=== PATIENT | female | born 1985 | race Caucasian/White ===

== ENCOUNTER → 2016-05-04 | Outpatient (CLI) | payer BC | END | disposition home or self-care (01) | LOC: LABWHC1 14:22 | PROVIDERS: ATTEND Obstetrics & Gynecology | DX: Z34.90 Encounter for supervision of normal pregnancy, unspecified, unspecified trimester (principal); Z3A.00 Weeks of gestation of pregnancy not specified | CPT/HCPCS: 36415; 84702 ==

== ENCOUNTER → 2016-05-28 | Outpatient (CLI) | payer BC | END | disposition home or self-care (01) | LOC: LABWHC1 16:19 | PROVIDERS: ATTEND Obstetrics & Gynecology | DX: Z34.80 Encounter for supervision of other normal pregnancy, unspecified trimester (principal); Z3A.00 Weeks of gestation of pregnancy not specified | CPT/HCPCS: 36415; 84702 ==

== ENCOUNTER → 2016-05-31 | Outpatient (CLI) | payer BC | END | disposition home or self-care (01) | LOC: LABWHC1 11:46 | PROVIDERS: ATTEND Obstetrics & Gynecology | DX: Z34.80 Encounter for supervision of other normal pregnancy, unspecified trimester (principal); Z3A.00 Weeks of gestation of pregnancy not specified | CPT/HCPCS: 36415; 84702 ==

== ENCOUNTER → 2016-07-09 | Outpatient (CLI) | payer BC ==
--- NOTE | 2016-07-09 15:19 | US ---
EXAMINATION TYPE: US OB <= 14 wk fetus DATE OF EXAM: 07/09/2016 2:47 PM COMPARISON: NONE CLINICAL HISTORY: Confirm Dates Z36,Vitality [id number]. EXAM PERFORMED: Transabdominal (TA) EXAM MEASUREMENTS: GESTATIONAL AGE / DATING Dates by LMP: (9 weeks/3 days) EDC: 02/08/2017 Dates by Current Scan: (9 weeks/4 days) EDC: 02/07/2017 MATERNAL ANATOMY Uterus: 10.5 x 8.0 x 7.0 cm Right Ovary: 3.2 x 2.2 x 2.1 cm Left Ovary: 2.7 x 1.2 x 1.1 cm Post CDS / Adnexa: no free fluid Presence of free fluid: no Presence of corpus luteal cyst: yes- right = 1.7 x 1.4 x 1.7 cm Presence of subchorionic bleed: no GESTATION / SURVEY CRL: 2.8 cm (9 weeks/4 days) MSD: not measured Yolk Sac (normal less than 6mm): 2.8 mm Heart Rate: 171 bpm Rhythm: Normal IUP: Viable IUP Date of LMP: 05/04/2016, Beta HcG (if available): not available TECHNOLOGIST IMPRESSION: Live single IUP measuring 9 weeks 4 days IMPRESSION: VIABLE INTRAUTERINE GESTATION WITH A GESTATIONAL AGE OF 9 WEEKS 4 DAYS +/- 5 DAYS. ESTIMATED DATE OF CONFINEMENT BASED ON THIS EXAMINATION IS 02/07/2017
== END | disposition home or self-care (01) ==
LOC: RADUSWWP 14:19
PROVIDERS: ATTEND Obstetrics & Gynecology
DX: Z36 Encounter for antenatal screening of mother (principal); Z3A.09 9 weeks gestation of pregnancy
CPT/HCPCS: 76801

== ENCOUNTER → 2016-08-04 | Outpatient (CLI) | payer BC ==
[2016-08-04 11:59] LABS: CH 30.9; CHCM 34.1; HCT 37.7 % (34.0-46.0); HDW 2.38; HGB 12.8 gm/dL (11.4-16.0); MCH 30.8 pg (25.0-35.0); MCHC 33.9 g/dL (31.0-37.0); Mean Platelet Volume 8.2; RBC 4.14 m/uL (3.80-5.40); RDW 13.2 % (11.5-15.5); WBC 6.5 k/uL (3.8-10.6)
[2016-08-04 12:09] LABS: Glucose 78 mg/dL (74-99); Non-African American GFR(MDRD) >60 (>60 ml/min/1.73 sqM)
[2016-08-04 12:40] LABS: Hepatitis B Surface Ag Index 0.06
[2016-08-05 06:22] LABS: Toxoplasma Antibody (IgG) <3.0 IU/mL (<7.2)
[2016-08-05 08:20] LABS: HIV-1/HIV-2 Ab Screen NONREAC (NON REAC)
== END | disposition home or self-care (01) ==
LOC: LABWHC1 11:20
PROVIDERS: ATTEND Obstetrics & Gynecology
DX: Z34.81 Encounter for supervision of other normal pregnancy, first trimester (principal); Z3A.00 Weeks of gestation of pregnancy not specified
CPT/HCPCS: 36415; 82565; 82947; 85027; 86762; 86777; 86778; 86780; 86850; 86900; 86901; 87340; 87389

== ENCOUNTER → 2016-10-28 | Outpatient (CLI) | payer BC ==
[2016-10-28 10:58] LABS: CH 31.1; CHCM 34.4; HCT 37.6 % (34.0-46.0); HDW 2.59; MCH 31.4 pg (25.0-35.0); MCHC 34.6 g/dL (31.0-37.0); MCV 90.8 fL (80.0-100.0); RBC 4.14 m/uL (3.80-5.40)
== END | disposition home or self-care (01) ==
LOC: LABWHC1 09:15
PROVIDERS: ATTEND Obstetrics & Gynecology
DX: Z34.82 Encounter for supervision of other normal pregnancy, second trimester (principal)
CPT/HCPCS: 36415; 82950; 85027

== ENCOUNTER 2017-02-01 05:47 | Inpatient (IN) | payer BC ==
--- NOTE | 2017-01-31 17:48 | P.HPOB ---
History of Present Illness H&P Date: 01/31/17 Chief Complaint: Repeat section This patient is a pleasant 31-year-old 2 para 1 female estimated date of confinement 02/08/2017 estimated gestational age 39-0/7 weeks who presents to labor and delivery for a repeat section. Patient's history is such that she had a primary in [place] for failure to progress and failed induction of labor. Patient got to 6 cm dilated that time and she did have a complication apparently at the time of surgery and had to be reopened for bleeding. Patient has requested repeat section at this time. care has been uncomplicated with the exception of a luteal phase defect for which she was on Prometrium. Review of Systems Constitutional: Denies chills, Denies fever Ears, nose, mouth and throat: Denies headache, Denies sore throat Cardiovascular: Denies chest pain, Denies shortness of breath Respiratory: Denies cough Gastrointestinal: Reports heartburn Genitourinary: Reports Menstruation: Reports amenorrhea Past Medical History Past Medical History: No Reported History History of Any Multi-Drug Resistant Organisms: None Reported Past Surgical History: Section Additional Past Surgical History / Comment(s): Patient had postoperative bleeding requiring repeat exploration. Appeared to be from a rectus muscle. Past Anesthesia/Blood Transfusion Reactions: Postoperative Nausea & Vomiting ( PONV) Additional Past Anesthesia/Blood Transfusion Reaction / Comment(s): FELT "VERY DRUGGED", HAD EMERGENCY CSEC, AFTER HAVING EPIDURAL FOR VAGINAL DELIVERY Past Psychological History: No Psychological Hx Reported Smoking Status: Never smoker Past Alcohol Use History: None Reported Past Drug Use History: None Reported Medications and Allergies Home Medications Medication Instructions Recorded Confirmed Type Pnv,Calcium 72/Iron/Folic Acid 1 tab PO DAILY 01/28/17 01/28/17 History [ Plus Tablet] Allergies Allergy/AdvReac Type Severity Reaction Status Date / Time No Known Allergies Allergy Verified 01/28/17 13:50 Exam - OBG Physical Exam Abdomen: bowel sounds normal, no diffuse tenderness, no bruit present, no guarding noted, no hepatomegaly, no splenomegaly, no mass Vulva: both: normal Vagina: normal moisture, no discharge Cervix: no lesion (Cervix in the office was closed and thick.), no discharge Uterus: enlarged (Fundal height at her last visit was 38 cm) Results blood work shows she is a positive, rubella immune, RPR nonreactive, HIV nonreactive, hepatitis B negative, ultrasounds have been normal, was normal , group B strep was positive. Assessment and Plan (1) Third trimester Narrative/Plan: This is a pleasant 31-year-old 2 para 1 female 39 weeks gestation who presents to labor and delivery for elective repeat section. Plan is repeat low transverse section. Patient I discussed the surgery and risks including risks of infection, bleeding, possible injury to bowel, bladder , vessels, and/or other organs. Patient also understands risk of DVT and pulmonary embolism. All the patient's questions are answered written consent is obtained. Status: Acute (2) Previous delivery affecting Status: Acute
[2017-02-01] MEDS ORDERED: LACTATED RINGERS 1,000 ML IV SCH (05:50)
[2017-02-01] MEDS ORDERED: LACTATED RINGERS 1,000 ML IV ONE (05:50)
[2017-02-01] MEDS ORDERED: CITRIC ACID-SODIUM CITRATE 15 ML CUP PO ONE (05:50)
[2017-02-01 06:08] VITALS: BMI 24.5
[2017-02-01 06:45] LABS: Basophils % (A) 0 %; CH 31.7; CHCM 34.3; Eosinophils # (A) 0.1 k/uL (0-0.7); Eosinophils % (A) 1 %; HCT 39.7 % (34.0-46.0); HGB 13.5 gm/dL (11.4-16.0); Luc # (Auto) 0.17; Luc % (Auto) 2; Lymphocytes # (A) 1.6 k/uL (1.0-4.8); Lymphocytes % (A) 18 %; MCH 31.7 pg (25.0-35.0); MCHC 34.1 g/dL (31.0-37.0); MCV 92.9 fL (80.0-100.0); Mean Platelet Volume 8.9; Monocytes # (A) 0.5 k/uL (0-1.0); Monocytes % (A) 6 %; Neutrophils # (A) 6.4 k/uL (1.3-7.7); Neutrophils % (A) 73 %; RBC 4.27 m/uL (3.80-5.40); RDW 12.6 % (11.5-15.5); WBC 8.8 k/uL (3.8-10.6); WBC (Perox) 9.95
[2017-02-01] MEDS ORDERED: ceFAZolin 2 GM in SODIUM CHLORIDE 0.9% 100 ML IVPB ONE (07:15)
[2017-02-01] MEDS ORDERED: OXYTOCIN 10 UNIT/ML 1 ML VIAL ONE (07:50)
[2017-02-01] MEDS ORDERED: KETOROLAC 30 MG/ML 1 ML VIAL ONE (07:50)
[2017-02-01] MEDS ORDERED: NALBUPHINE 10 MG/ML AMPUL ONE (07:50)
[2017-02-01] MEDS ORDERED: ONDANSETRON 4 MG/2 ML VIAL ONE (07:50)
--- NOTE | 2017-02-01 08:37 | P.OP ---
Date of Procedure: 02/01/17 Preoperative Diagnosis: #1: 39-0/7 week . #2: Previous section desires repeat Postoperative Diagnosis: Same Procedure(s) Performed: repeat low transverse section Anesthesia: spinal Surgeon: Jose Lizarraga Cloth Framer #1: Annamarie Aguiar Estimated Blood Loss (ml): 800 Pathology: other (Placenta) Condition: stable Disposition: floor Indications for Procedure: Please see dictated H&P for intimate details of this patient's admission. Brief summary this is a pleasant 31-year-old 2 para 1 female 39-0/7 weeks gestation who is admitted to labor and delivery for elective repeat section. Patient does understand the surgery and risks including risks of infection, bleeding, possible injury to bowel, bladder, vessels, and/ or other organs. She also understands the risk of DVT and pulmonary embolism. All the patient's questions are answered and a written consent is obtained. Operative Findings: This was a vigorous viable female Apgars were 8 and 9 delivery time is 0807 hrs. Description of Procedure: This patient has a Sofia catheter placed to straight drain. She is subsequently taken to the operating room where she is sat up and spinal anesthetic is administered without incident. With an adequate level of anesthesia she has an abdominal prep and drape. Scalpels taken the previous Pfannenstiel incision is excised. A second scalpel is taken down to the fascia and the fascia scored with the scalpel. The fascial incision extended bilaterally using the Fish scissors. Fascia is then dissected off the rectus muscles sharply. Rectus muscles are and the peritoneum was identified and entered sharply. Peritoneal incision extended superior and inferior without difficulty. Bladder blade is then placed. Bladder peritoneum was taken off the lower uterine segment sharply. A scalpel is then taken and a low transverse uterine incision is made. Using a hemostat I enter the uterine cavity bluntly and there is loss of clear fluid. Uterine incision is extended bluntly. The infant's head is then guided through the incision with fundal pressure with delivery of the infant's head. Bulb suction is used for. There is a nuchal cord 1 which is loose and then reduced. We then have deliver the anterior posterior shoulder and rest this infant's body. This is a vigorous viable female infant Apgars are 8 and 9 delivery time was 0807 hrs. has spontaneous respirations and good cry and grossly appears normal. After delivery of the the umbilical cord is doubly clamped and cut appears to be trivascular. The placenta is then manually extracted intact. Uterus is then externalized and uterine incision demarcated with Hill clamps. Uterus explored and all tissue is been removed. Uterine incision then closed using 0 Vicryl running locked fashion 2 layers. Excellent hemostasis is noted. The bladder peritoneum was then closed using a 3-0 Vicryl. Uterus placed back into the abdomen excess fluid is removed from the abdomen and pelvis. The parietal peritoneum was then identified and closed using 0 Vicryl running fashion. The rectus muscles reapproximated in 0 Vicryl interrupted fashion. The fascia is closed using 0 PDS in a running fashion. Fascial incision is found to be intact and hemostatic. Subcutaneous tissues and closed using a 3-0 Vicryl. Skin is and closed using kathleen. Excellent reapproximation is noted. Sterile dressing is then applied. Patient is then taken to her birthing suite in satisfactory condition. All counts are correct 3. There are no complications.
[2017-02-01] MEDS ORDERED: ACETAMINOPHEN TAB 325 MG TAB PO PRN (08:38)
[2017-02-01] MEDS ORDERED: ZOLPIDEM 5 MG TAB PO PRN (08:38)
[2017-02-01] MEDS ORDERED: METOCLOPRAMIDE 5 MG/ML 2 ML VIAL IVP PRN (08:38)
[2017-02-01] MEDS ORDERED: ONDANSETRON 4 MG/2 ML VIAL IVP PRN (08:38)
[2017-02-01] MEDS ORDERED: diphenhydrAMINE 25 MG CAP PO PRN (08:38)
[2017-02-01] MEDS ORDERED: diphenhydrAMINE 50 MG/ML 1 ML VIAL IVP PRN (08:38)
[2017-02-01] MEDS ORDERED: KETOROLAC 30 MG/ML 1 ML VIAL IVP PRN (08:38)
[2017-02-01] MEDS ORDERED: SIMETHICONE 80 MG CHEWABLE PO PRN (08:38)
[2017-02-01] MEDS ORDERED: NALOXONE 0.4 MG/ML 1 ML VIAL IV PRN (08:38)
[2017-02-01] MEDS ORDERED: Acetaminophen-Codeine 300-30mg TAB PO PRN (08:38)
[2017-02-01] MEDS ORDERED: OXYTOCIN 20 UNITS/1000 ML NS 1,000 ML IV SCH (08:38)
[2017-02-01] MEDS: SENNOSIDES-DOCUSATE SODIUM 1 EACH TAB PO SCH ×2 (09:03→20:53)
[2017-02-01] MEDS: LACTATED RINGERS 1,000 ML IV SCH (22:19)
[2017-02-01] MEDS: Acetaminophen-Codeine 300-30mg TAB PO PRN (23:35)
[2017-02-02] MEDS: LACTATED RINGERS 1,000 ML IV SCH (00:40)
[2017-02-02] MEDS: IBUPROFEN 600 MG TAB PO PRN ×3 (04:01→19:07)
--- NOTE | 2017-02-02 06:59 | P.PNOBGPC ---
Subjective - Subjective Patient reports: Reports appetite normal, Reports voiding normally, Reports pain well controlled, Reports ambulating normally : doing well Objective - Vital Signs Latest vital signs: Vital Signs Temp Pulse Resp BP Pulse Ox 02/02/17 04:00 98 F 76 16 104/63 97 02/01/17 23:53 98.5 F 73 16 110/67 100 02/01/17 20:00 98.3 F 73 16 113/70 99 02/01/17 15:00 98.5 F 83 16 117/86 100 02/01/17 10:34 83 16 134/65 02/01/17 10:05 83 16 141/72 02/01/17 09:34 76 16 139/68 99 02/01/17 09:20 76 16 131/64 99 02/01/17 09:06 81 18 132/71 98 02/01/17 08:49 83 18 137/66 98 02/01/17 08:34 97.7 F 75 18 128/59 100 Intake and Output 02/01/17 02/01/17 02/02/17 14:59 22:59 06:59 Output Total 800 1700 650 Balance -800 -1700 -650 Output: Urine 1700 650 Uretheral (Sofia) 1400 Estimated Blood Loss 800 Other: # Voids 1 1 - Exam Lungs: bilateral: normal Chest: Normal S1, Normal S2 Extremities: Present: normal Abdomen: Present: normal appearance, soft. Absent: distention, tenderness Incision: Present: normal, dry, intact Uterus: Present: normal, firm Assessment and Plan (1) Third trimester Narrative/Plan: Post operative day #1. Patient is resting without complaints. Vital signs are stable and she is afebrile. Her incision is intact and dry. CBC is pending at this time. My impression this is a normal course. Plan is to encouraged patient ambulate, allow her to shower, check a CBC. Continue routine postoperative care. Current Visit: Yes Status: Acute Code(s): Z34.93 - ENCNTR FOR SUPRVSN OF NORMAL PREG, UNSP, THIRD TRIMESTER SNOMED Code(s): 08717830 (2) Previous delivery affecting Current Visit: Yes Status: Acute Code(s): O34.219 - MATERNAL CARE FOR UNSP TYPE SCAR FROM PREVIOUS DEL SNOMED Code(s): 313328617
[2017-02-02] MEDS: SENNOSIDES-DOCUSATE SODIUM 1 EACH TAB PO SCH ×2 (07:22→19:51)
[2017-02-02] MEDS: Acetaminophen-Codeine 300-30mg TAB PO PRN ×3 (07:23→19:50)
[2017-02-02 08:51] LABS: Basophils % (A) 0 %; CH 31.8; CHCM 33.9; Eosinophils # (A) 0.1 k/uL (0-0.7); Eosinophils % (A) 1 %; HCT 40.4 % (34.0-46.0); HDW 2.63; HGB 13.6 gm/dL (11.4-16.0); Luc # (Auto) 0.18; Luc % (Auto) 2; Lymphocytes # (A) 1.2 k/uL (1.0-4.8); Lymphocytes % (A) 12 %; MCH 31.8 pg (25.0-35.0); MCHC 33.8 g/dL (31.0-37.0); MCV 94.1 fL (80.0-100.0); Mean Platelet Volume 8.5; Monocytes # (A) 0.6 k/uL (0-1.0); Monocytes % (A) 6 %; Neutrophils % (A) 79 %; RBC 4.29 m/uL (3.80-5.40); RDW 12.5 % (11.5-15.5); WBC 10.2 k/uL (3.8-10.6); WBC (Perox) 11.23
--- NOTE | 2017-02-02 11:11 | P.PN ---
Progress Note - Text Progress Note Date: 02/02/17 0645 Anesthesia POD 1. Patient is status post section under spinal anesthesia with intra-thecal preservative free morphine 300 g. Minimal pruritus, good post-op analgesia, and no headache or other complications.
[2017-02-03] MEDS: IBUPROFEN 600 MG TAB PO PRN ×5 (00:33→23:52)
[2017-02-03] MEDS: Acetaminophen-Codeine 300-30mg TAB PO PRN ×3 (02:03→20:32)
[2017-02-03] MEDS: SENNOSIDES-DOCUSATE SODIUM 1 EACH TAB PO SCH ×2 (08:10→20:32)
--- NOTE | 2017-02-03 08:25 | P.PNOBGPC ---
Subjective - Subjective Patient reports: Reports appetite normal, Reports voiding normally, Reports pain well controlled, Reports ambulating normally : doing well Objective - Vital Signs Latest vital signs: Vital Signs Temp Pulse Resp BP Pulse Ox 02/03/17 00:00 98.3 F 86 14 145/72 02/02/17 15:27 97.8 F 89 16 98/70 98 - Exam Lungs: bilateral: normal Chest: Normal S1, Normal S2 Extremities: Present: normal Abdomen: Present: normal appearance, soft. Absent: distention, tenderness Incision: Present: normal, dry, intact Uterus: Present: normal, firm - Labs Labs: Abnormal Lab Results - Last 24 Hours (Table) 02/02/17 Range/Units 08:21 Neutrophils # 8.0 H (1.3-7.7) k/uL Assessment and Plan (1) Third trimester Narrative/Plan: Post operative day #2. Patient is resting without complaints. She is ambulating and urinating without difficulty and tolerating regular diet. Plan today is to continue routine postoperative care most likely discharge home tomorrow. Current Visit: Yes Status: Acute Code(s): Z34.93 - ENCNTR FOR SUPRVSN OF NORMAL PREG, UNSP, THIRD TRIMESTER SNOMED Code(s): 13185795 (2) Previous delivery affecting Current Visit: Yes Status: Acute Code(s): O34.219 - MATERNAL CARE FOR UNSP TYPE SCAR FROM PREVIOUS DEL SNOMED Code(s): 603274496
[2017-02-03 08:26] VITALS: RESP 16
[2017-02-04] MEDS: Acetaminophen-Codeine 300-30mg TAB PO PRN ×2 (03:04→09:18)
[2017-02-04] MEDS: IBUPROFEN 600 MG TAB PO PRN ×2 (05:51→12:44)
--- NOTE | 2017-02-04 06:53 | P.PNOBGPC ---
Subjective - Subjective Patient reports: Reports appetite normal, Reports voiding normally, Reports pain well controlled, Reports ambulating normally : doing well Objective - Vital Signs Latest vital signs: Vital Signs Temp Pulse Resp BP Pulse Ox 02/04/17 00:00 98.2 F 75 16 113/70 02/03/17 15:16 97.8 F 79 16 134/77 98 02/03/17 08:00 98.3 F 75 16 114/67 94 L Intake and Output 02/03/17 02/03/17 02/04/17 14:59 22:59 06:59 Intake Total 1200 Balance 1200 Intake: Oral 1200 Other: # Voids 1 1 2 - Exam Lungs: bilateral: normal Chest: Normal S1, Normal S2 Extremities: Present: normal Abdomen: Present: normal appearance, soft. Absent: distention, tenderness Incision: Present: normal, dry, intact Uterus: Present: normal, firm Assessment and Plan (1) Third trimester Narrative/Plan: Postoperative day #3. Patient is resting without complaints. Vital signs are stable she is afebrile. Uterus is firm nontender and her incision is intact and dry. My impression is this is a normal postoperative course. Plan is to continue routine postoperative care discharge home later today. Current Visit: Yes Status: Acute Code(s): Z34.93 - ENCNTR FOR SUPRVSN OF NORMAL PREG, UNSP, THIRD TRIMESTER SNOMED Code(s): 03127223 (2) Previous delivery affecting Current Visit: Yes Status: Acute Code(s): O34.219 - MATERNAL CARE FOR UNSP TYPE SCAR FROM PREVIOUS DEL SNOMED Code(s): 785296964
--- NOTE | 2017-02-04 06:54 | P.DS ---
Providers Date of admission: 02/01/17 05:47 Expected date of discharge: 02/04/17 Attending physician: Jose Lizarraga Primary care physician: Stated None - Discharge Diagnosis(es) (1) Third trimester Current Visit: Yes Status: Acute (2) Previous delivery affecting Current Visit: Yes Status: Acute Hospital Course: Please see dictated H&P for intimate details of this patient's admission. Brief summary is a pleasant 31-year-old 2 para 1 female 39-0/7 weeks gestation admitted to labor and delivery for repeat section. Patient is admitted has uncomplicated repeat section for viable female infant. Please see dictated operative note. By postoperative day #3 patient was felt to be stable for discharge home follow up with me in 7 days. Procedures: Repeat low transverse section Patient Condition at Discharge: Good Plan - Discharge Summary New Discharge Prescriptions: New Acetaminophen-Codeine 300-30mg [Tylenol w/codeine #3] 1 - 2 each PO Q4HR PRN #30 tab PRN Reason: Mild Pain Ibuprofen [Motrin] 600 mg PO Q6HR PRN #40 tab PRN Reason: Mild Pain Or Fever >= 100.5 No Action Pnv,Calcium 72/Iron/Folic Acid [ Plus Tablet] 1 tab PO DAILY Discharge Medication List Pnv,Calcium 72/Iron/Folic Acid [ Plus Tablet] 1 tab PO DAILY 01/28/17 [ History] Acetaminophen-Codeine 300-30mg [Tylenol w/codeine #3] 1 - 2 each PO Q4HR PRN # 30 tab 02/03/17 [Rx] Ibuprofen [Motrin] 600 mg PO Q6HR PRN #40 tab 02/03/17 [Rx] Follow up Appointment(s)/Referral(s): Jose Lizarraga MD [STAFF PHYSICIAN] - 1 Week Patient Instructions/Handouts: (DC) Activity/Diet/Wound Care/Special Instructions: No strenuous activity or lifting for 6 weeks. No intercourse or anything per vagina for 6 weeks. Please call if any fever, chills, excessive vaginal bleeding, and/or abdominal pain. Discharge Disposition: HOME SELF-CARE
[2017-02-04 08:04] VITALS: BP 129/77; PULSE 80; TEMP 98.4
[2017-02-04] MEDS: SENNOSIDES-DOCUSATE SODIUM 1 EACH TAB PO SCH (09:18)
== END 2017-02-04 13:30 | disposition home or self-care (01) | DRG 766 ==
LOC: 4FBP 05:47
PROVIDERS: ADMIT Obstetrics & Gynecology; ATTEND Obstetrics & Gynecology
PROC: 10D00Z1 Extraction of Products of Conception, Low, Open Approach (ICD-10-PCS; principal; 2017-02-01 08:00)
DX: O34.211 Maternal care for low transverse scar from previous cesarean delivery (principal); O69.81X0 Labor and delivery complicated by cord around neck, without compression, not applicable or unspecified; Z37.0 Single live birth; Z3A.39 39 weeks gestation of pregnancy
CPT/HCPCS: 85025; 86850; 86900; 86901; 88302; 88307

== ENCOUNTER → 2018-06-14 | Outpatient (CLI) | payer BC | LOC: NEUROMAIN 12:54 | PROVIDERS: ATTEND Otolaryngology | DX: Z53.9 Procedure and treatment not carried out, unspecified reason (principal) ==

== ENCOUNTER 2019-02-11 21:59 | Outpatient (CLI) | payer BC ==
[2019-02-11 23:02] VITALS: BP 141/75; PULSE 115; RESP 16; TEMP 98.8
--- NOTE | 2019-03-13 08:20 | P.MSEPDOC ---
Presenting Problems - Arrival Data Date of Arrival on Unit: 02/11/19 Time of Arrival on Unit: 21:59 Mode of Transport: Ambulatory - Complaint OB-Reason for Admission/Chief Complaint: Rule Out SROM Comment: Clear fluid around 2130, pt states contractions every 3 minutes for the past 2 hours. Medical History - Information : 4 Para: 2 Term: 2 : 0 Abortions: Spontaneous or Elective: 1 Number of Living Children: 2 - Gestational Age Gestational Age by CLIFFORD (wks/days): 36 Weeks and 3 Days Review of Systems - Review of Systems Constitutional: No problems Breast: No problems ENT: No problems Cardiovascular: No problems Respiratory: No problems Gastrointestinal: No problems Genitourinary: No problems Musculoskeletal: No problems Neurological: No problems Skin: No problems Vital Signs - Temperature Temperature: 98.8 F Temperature Source: Oral - Pulse Right Brachial Pulse Rate: 115 Pulse Assessment Method: Automatic Cuff - Respirations Respiratory Rate: 16 Oxygen Delivery Method: Room Air O2 Sat by Pulse Oximetry: 97 - Blood Pressure Right Arm Blood Pressure: 141/75 Blood Pressure Mean: 97 Blood Pressure Source: Automatic Cuff Medical Screen Scoring (Pre) - Cervical Exam Dilation: Exam Deferred Effacement: Exam Deferred Membranes: Intact - Uterine Contractions Frequency: > or = 36 weeks =2 Duration: > 40 seconds = 2 Intensity: N/A - Maternal Vital Signs Maternal Temperature: N/A Maternal Blood Pressure: N/A Signs of Preeclampsia: N/A Maternal Respirations: N/A - Maternal Trauma Maternal Trauma: N/A - Assessment - Baby A Baseline FHR: 135 Heart Rate - NICHD Category: Category I (Normal) = 0 NST: Reactive - Total Score - Baby A Total Score - Baby A: 4 - Total Score - Baby B Total Score - Baby B: 4 - Total Score - Baby C Total Score - Baby C: 4 - Level of Risk - Baby A Level of Risk - Baby A: Low (0-5) - Level of Risk - Baby B Level of Risk - Baby B: Low (0-5) - Level of Risk - Baby C Level of Risk - Baby C: Low (0-5) - Pain Assessment Pain Location and Character: Back, Abdomen Pain Scale Used: Numeric (1 - 10) Pain Intensity: 5 Pain Management Goal: 4 Pain Description: *Acute, Cramping Pain Radiation Location: no Pain Frequency: Intermittent Pain Duration: 2 Pain Duration Units: Hours Pain Behavior: Vocalization Pain Aggravating Factors: Contractions Physician Notification (Pre) - Physician Notified Physician Notified Date: 02/11/19 Physician Notified Time: 22:55 Spoke With: Terrance Prater Order Received: Yes - Notification Comment Comment: Preform vag exam after 1 hour, if no cevical change d/c home. Physician Notification (Post) - Notification Comment Comment: Closed/thick/high, no cervical change Disposition - Disposition OB Disposition: Discharge to home, Written follow up instructions reviewed Discharge Date: 02/11/19 Discharge Time: 23:15 I agree with the RN Medical Screening Exam: Yes Risk & Benefit of care provided described in d/c instruction: Yes Diagnosis: FALSE LABOR BEFORE 37 COMPLETED WEEKS OF GEST, THIRD TRI
== END 2019-02-11 23:15 | disposition home or self-care (01) ==
LOC: FBPOP 21:59
PROVIDERS: ATTEND Obstetrics & Gynecology
DX: O47.03 False labor before 37 completed weeks of gestation, third trimester (principal); Z3A.36 36 weeks gestation of pregnancy
CPT/HCPCS: 59025; 84112; 99213

== ENCOUNTER 2019-03-02 05:15 | Inpatient (IN) | payer BC ==
--- NOTE | 2019-03-01 07:16 | P.HPOB ---
History of Present Illness H&P Date: 03/01/19 Chief Complaint: Repeat section and also tubal ligation. This patient is a pleasant 33-year-old 4 para 2 female estimated date of confinement 03/08/2019 estimated gestational age 39 and one sevenths weeks who presents to labor and delivery for elective repeat sections also requesting permanent sterilization by tubal ligation. Patient's care has been complicated by gestational diabetes for which she has not required any medications. Patient's followed by Dr. Gaming. Patient's had 2 previous section desires repeat also requesting tubal ligation. Review of Systems Genitourinary: Reports Menstruation: Reports amenorrhea Past Medical History Past Medical History: No Reported History Additional Past Medical History / Comment(s): Gestational diabetes 12/28/18. CURRENTLY ON AMOXICILLIN FOR STREP THROAT -DR. DIAL AWARE History of Any Multi-Drug Resistant Organisms: None Reported Past Surgical History: Section Additional Past Surgical History / Comment(s): Patient had postoperative bleeding requiring repeat exploration. Appeared to be from a rectus muscle. FROM 1ST C-SECT, NO PROBLEMS WITH 2ND C SECT Past Anesthesia/Blood Transfusion Reactions: Postoperative Nausea & Vomiting (PONV) Additional Past Anesthesia/Blood Transfusion Reaction / Comment(s): FELT "VERY DRUGGED", HAD EMERGENCY CSEC, AFTER HAVING EPIDURAL FOR VAGINAL DELIVERY Past Psychological History: No Psychological Hx Reported Smoking Status: Never smoker Past Alcohol Use History: None Reported Past Drug Use History: None Reported - Past Family History Mother Family Medical History: No Reported History Medications and Allergies Home Medications Medication Instructions Recorded Confirmed Type Pnv,Calcium 72/Iron/Folic Acid 1 tab PO DAILY 01/28/17 02/28/19 History [ Plus Tablet] Allergies Allergy/AdvReac Type Severity Reaction Status Date / Time No Known Allergies Allergy Verified 02/28/19 10:44 Exam - OBG Physical Exam Abdomen: bowel sounds normal, no diffuse tenderness, no bruit present, no guarding noted, no hepatomegaly, no splenomegaly, no mass Vulva: both: normal Vagina: normal moisture, no discharge Cervix: no lesion (Cervix in the office was previously closed.), no discharge Uterus: enlarged (Fundal height 37 cm) Results blood work shows she is A positive, rubella immune, RPR nonreactive, group B strep was positive, Glucola was abnormal and three-hour GTT was abnormal. Growth ultrasounds have been normal. Assessment and Plan Assessment: This is a pleasant 33-year-old 4 para 2 female 39 and one sevenths weeks gestation with previous section 2 requesting repeat section and also requesting permanent sterilization. Patient also has diet-controlled gestational diabetes. Plan is repeat low transverse section and bilateral partial salpingectomy. Patient understands a tubal ligation is considered permanent, however there is a failure rate of approximately 5 or less per thousand procedures done. She understands that there are alternatives to the surgery. Patient understands surgery itself has risks including risks of infection, bleeding, possible injury to bowel, bladder, vessels, and/or other organs. All the patient's questions have been answered and a written consent is obtained. (1) 39 weeks gestation of Status: Acute Code(s): Z3A.39 - 39 WEEKS GESTATION OF SNOMED Code(s): 39987291 (2) Previous delivery affecting Status: Acute Code(s): O34.219 - MATERNAL CARE FOR UNSP TYPE SCAR FROM PREVIOUS DEL SNOMED Code(s): 722961944 (3) Family planning Status: Acute Code(s): Z30.09 - ENCOUNTER FOR OTH GENERAL CNSL AND ADVICE ON CONTRACEPTION SNOMED Code(s): 197163852 (4) Gestational diabetes Status: Acute Code(s): O24.419 - GESTATIONAL DIABETES MELLITUS IN , UNSP CONTROL SNOMED Code(s): 92380360
[2019-03-02] MEDS ORDERED: LACTATED RINGERS 1,000 ML IV SCH (05:30)
[2019-03-02] MEDS ORDERED: CITRIC ACID-SODIUM CITRATE 15 ML CUP PO ONE (05:30)
[2019-03-02] MEDS ORDERED: LACTATED RINGERS 1,000 ML IV ONE (05:30)
[2019-03-02 05:45] VITALS: BMI 25.2
[2019-03-02 06:22] LABS: Basophils % (A) 0 %; Eosinophils # (A) 0.1 k/uL (0-0.7); Eosinophils % (A) 1 %; HCT 39.2 % (34.0-46.0); Lymphocytes # (A) 1.1 k/uL (1.0-4.8); Lymphocytes % (A) 19 %; MCHC 33.3 g/dL (31.0-37.0); MCV 90.2 fL (80.0-100.0); Monocytes # (A) 0.3 k/uL (0-1.0); Monocytes % (A) 6 %; Neutrophils % (A) 71 %; Platelet Count 174 k/uL (150-450); RBC 4.34 m/uL (3.80-5.40); RDW 12.9 % (11.5-15.5); WBC 5.7 k/uL (3.8-10.6)
[2019-03-02 06:59] LABS: Glucose,Whole Blood 75 mg/dL (75-99)
[2019-03-02] MEDS ORDERED: OXYTOCIN 10 UNIT/ML 1 ML VIAL ONE (07:00)
[2019-03-02] MEDS ORDERED: ONDANSETRON 4 MG/2 ML VIAL ONE (07:00)
[2019-03-02] MEDS ORDERED: ePHEDrine SULFATE/0.9% NACL/PF 50 MG/5 ML SYRINGE IV ONE (07:00)
[2019-03-02] MEDS ORDERED: KETOROLAC 30 MG/ML 1 ML VIAL ONE (07:00)
[2019-03-02] MEDS ORDERED: NALBUPHINE 10 MG/ML (1 ML AMP) ONE (07:00)
[2019-03-02] MEDS ORDERED: MORPHINE SULFATE (PF) 0.3 MG/0.3 ML SYR ONE (07:00)
--- NOTE | 2019-03-02 07:56 | P.OP ---
Date of Procedure: 03/02/19 Preoperative Diagnosis: #1: 39 and one sevenths weeks . #2: Previous section desires repeat. #3: Multi parity desires permanent sterilization. #4: Gestational diabetes, diet controlled Postoperative Diagnosis: Same Procedure(s) Performed: Repeat low transverse section and bilateral partial salpingectomy Anesthesia: spinal Surgeon: Jose Lizarraga Veterinary Technologist #1: Annamarie Aguiar Estimated Blood Loss (ml): 800 Pathology: other (Placenta and bilateral fallopian tube segments) Condition: stable Disposition: floor Indications for Procedure: Please see dictated H&P for intimate details of this patient's admission. Brief summary this is a pleasant 33-year-old 4 para 2 female 39 and one sevenths weeks gestation admitted to labor and delivery for elective repeat section and also requesting permanent sterilization. Patient understands a tubal ligation is considered permanent, however there is a failure rate of less than 5 per thousand procedures done. She also understands if she does become she has a 50% chance of a tubal or an ectopic . Patient understands surgery itself and apparently has risks including risks of infection, bleeding, possible injury to bowel, bladder, vessels, and/or other organs. All the patient's questions are answered written consent is obtained. Operative Findings: This is a vigorous viable female Apgars 9 and 9 delivery time was 0716 hrs. Infant had spontaneous respirations and good cry and grossly appear normal Description of Procedure: This patient has a Sofia catheter placed to straight drain. She is subsequently taken to the operating room where she sat up and spinal anesthetic is administered without incident. With an adequate level of anesthesia she has abdominal prep and drape. Scalpel is taken the previous Pfannenstiel incision is excised. A second scalpel is then used to score the fascia. Fascial incision extended bilaterally using the Fish scissors. Fascia is dissected off the rectus muscles sharply. There is a small defect in the rectus muscle on the lower right side most likely from her first section area the peritoneum was then identified and entered sharply. Peritoneal incision extended superior and inferior without difficulty. Bladder blade is then placed the bladder peritoneum was taken off the lower uterine segment. Scalpels and taken low tr ansverse uterine incision is then made. Using a hemostat I enter the uterine cavity bluntly. There is loss of clear fluid. This is incision is extended bluntly. The infant's head is then guided gently through the incision with fundal pressure. Mouth and nares are bulb suctioned. Is no evidence of a nuchal cord. Then have deliver the anterior shoulder and rest this infant's body. Is a vigorous viable female Apgars 9 and 9 delivery time was 0716 hours. After delivery of the the umbilical cords doubly clamped and cut. Infant is handed off to the nurses in attendance. Placenta is then manually extracted intact. The uterus is then externalized and the uterine incision demarcated with Hill clamps. All tissue is been removed from the uterine cavity. Uterine incision is then closed using 0 Vicryl running locked fashion 2 layers. Excellent hemostasis is noted. Then turned my attention a left fallopian tube approximately 4 cm from the cornual insertion a small window made to the mesial salpinx with Bovie cautery. Using a 2-0 silk I doubly ligate 1-2 cm segment of tube. This is excised and handed off to pathology. The tubal ends are cauterized. Then turned my attention of the right fallopian tube and using a similar technique a segment of the right fallopian tube is excised and cauterized. Excellent hemostasis is noted bilaterally. Excess fluid is removed from the abdomen and pelvis. Uterus placed back into the abdomen. Parietal peritoneum was identified. I do inspect the tubal ends uterine incision all appears hemostatic. The parietal peritoneum was then closed in 0 Vicryl running fashion. Rectus muscles are reapproximated best as possible using 0 Vicryl interrupted fashion. Fascial incision then closed using 0 PDS. Fascial incisio n is intact and hemostatic. Subcutaneous tissues and closed using a 3-0 Vicryl. Skin is and closed using kathleen. All counts are correct 3. There are no complications. and mother are stable delivery room.
[2019-03-02] MEDS ORDERED: ZOLPIDEM 5 MG TAB PO PRN (07:59)
[2019-03-02] MEDS ORDERED: ONDANSETRON 4 MG/2 ML VIAL IVP PRN (07:59)
[2019-03-02] MEDS ORDERED: diphenhydrAMINE 50 MG/ML 1 ML VIAL IVP PRN (07:59)
[2019-03-02] MEDS ORDERED: diphenhydrAMINE 25 MG CAP PO PRN (07:59)
[2019-03-02] MEDS ORDERED: ACETAMINOPHEN TAB 325 MG TAB PO PRN (07:59)
[2019-03-02] MEDS ORDERED: SIMETHICONE 80 MG CHEWABLE PO PRN (07:59)
[2019-03-02] MEDS ORDERED: OXYTOCIN 20 UNITS/1000 ML NS 1,000 ML IV SCH (07:59)
[2019-03-02] MEDS ORDERED: METOCLOPRAMIDE 5 MG/ML 2 ML VIAL IVP PRN (07:59)
[2019-03-02] MEDS ORDERED: NALOXONE 0.4 MG/ML 1 ML VIAL IV PRN (07:59)
[2019-03-02] MEDS: LACTATED RINGERS 1,000 ML IV SCH ×2 (12:40→16:34)
[2019-03-02] MEDS: SENNOSIDES-DOCUSATE SODIUM 1 EACH TAB PO SCH ×2 (12:41→20:48)
[2019-03-02] MEDS: KETOROLAC 30 MG/ML 1 ML VIAL IVP PRN ×2 (14:04→20:46)
[2019-03-03] MEDS: IBUPROFEN 600 MG TAB PO PRN ×4 (04:27→23:48)
--- NOTE | 2019-03-03 06:03 | P.PN ---
Progress Note - Text Progress Note Date: 03/03/19 Pt without complaints. Ambulating without weakness or paresthesias. Pain and pruritis controlled. Denies headache. VSS Back - spinal site clean and dry A/P POD#1 s/p with spinal duramorph - doing well
--- NOTE | 2019-03-03 06:44 | P.PNOBGPC ---
Subjective - Subjective Principal diagnosis: Status post repeat section with tubal ligation postoperative day1 Interval history: Patient is doing well. She is an bleeding. She is passing flatus but no bowel movement yet. Pain is fairly well controlled. She is breast-feeding. Patient reports: Reports appetite normal, Reports voiding normally, Reports pain well controlled, Reports ambulating normally Grace: doing well, nursing well Objective - Vital Signs Latest vital signs: Vital Signs Temp Pulse Resp BP Pulse Ox 03/03/19 04:00 98.7 F 78 16 102/59 03/03/19 00:00 97.9 F 59 L 16 100/61 97 03/02/19 20:00 98.3 F 70 16 105/61 99 03/02/19 15:00 98.3 F 65 16 127/77 99 03/02/19 12:00 97.5 F L 73 16 125/90 98 03/02/19 09:44 98.1 F 73 16 130/75 100 03/02/19 09:15 68 16 117/67 100 03/02/19 08:44 78 18 111/55 99 03/02/19 08:29 97.6 F 81 16 115/81 97 03/02/19 08:14 80 18 136/64 97 03/02/19 07:59 85 18 154/82 96 03/02/19 07:44 97.5 F L 88 16 127/61 95 Intake and Output 03/02/19 03/02/19 03/03/19 14:59 22:59 06:59 Output Total 1000 Balance -1000 Output: Urine 1000 Uretheral (Sofia) 250 Other: Voiding Method Indwelling Catheter # Voids 1 - Exam Extremities: Present: normal. Absent: tenderness Abdomen: Present: normal appearance, soft (Positive bowel sounds 4). Absent: distention, tenderness Incision: Present: normal, dry, intact Uterus: Present: normal, firm. Absent: tenderness Assessment and Plan Assessment: Status post repeat section with bilateral partial salpingectomy postoperative day #1 Plan: Continue with postoperative and care.
[2019-03-03 07:47] LABS: Basophils % (A) 0 %; Eosinophils # (A) 0.1 k/uL (0-0.7); Eosinophils % (A) 2 %; HCT 35.7 % (34.0-46.0); HGB 11.9 gm/dL (11.4-16.0); Lymphocytes # (A) 0.7 k/uL (1.0-4.8); Lymphocytes % (A) 8 %; MCH 29.7 pg (25.0-35.0); MCHC 33.3 g/dL (31.0-37.0); MCV 89.5 fL (80.0-100.0); Mean Platelet Volume 8.2; Monocytes # (A) 0.3 k/uL (0-1.0); Monocytes % (A) 4 %; Neutrophils # (A) 6.6 k/uL (1.3-7.7); Neutrophils % (A) 85 %; Platelet Count 157 k/uL (150-450); RBC 3.99 m/uL (3.80-5.40); RDW 13.3 % (11.5-15.5); WBC 7.7 k/uL (3.8-10.6)
[2019-03-03] MEDS: HYDROcodone/APAP 5-325MG 1 EACH TAB PO PRN ×3 (09:20→21:09)
[2019-03-03] MEDS: SENNOSIDES-DOCUSATE SODIUM 1 EACH TAB PO SCH ×2 (09:21→21:09)
[2019-03-04] MEDS: HYDROcodone/APAP 5-325MG 1 EACH TAB PO PRN ×4 (03:29→20:49)
--- NOTE | 2019-03-04 07:51 | P.PNOBGPC ---
Subjective - Subjective Principal diagnosis: Status post repeat section with tubal postoperative day #2 Interval history: Patient is doing okay. Her pain increased yesterday. She is concerned with going home and taking care of her other children. Lochia is decreasing. She is passing flatus and bowel movement. She is breast-feeding. Patient reports: Reports appetite normal, Reports voiding normally, Reports pain well controlled, Reports ambulating normally : doing well, nursing well Objective - Vital Signs Latest vital signs: Vital Signs Temp Pulse Resp BP Pulse Ox 03/04/19 00:00 98.5 F 75 16 103/62 98 03/03/19 16:00 98.7 F 78 18 109/64 98 03/03/19 08:00 98.3 F 79 18 116/69 99 Intake and Output 03/03/19 03/04/19 03/04/19 22:59 06:59 14:59 Other: # Voids 1 1 - Exam Extremities: Present: normal. Absent: tenderness Abdomen: Present: normal appearance, soft (Positive bowel sounds 4). Absent: distention, tenderness Incision: Present: normal, dry, intact. Absent: erythematous Uterus: Present: normal, firm. Absent: tenderness Assessment and Plan Assessment: Status post repeat section with tubal ligation postoperative day #2 Plan: Patient will stay 1 more day. Continue with pain control today.
[2019-03-04] MEDS: IBUPROFEN 600 MG TAB PO PRN ×2 (11:47→18:08)
[2019-03-04] MEDS: SENNOSIDES-DOCUSATE SODIUM 1 EACH TAB PO SCH ×2 (12:37→18:11)
[2019-03-05] MEDS: IBUPROFEN 600 MG TAB PO PRN ×2 (00:18→07:53)
[2019-03-05] MEDS: HYDROcodone/APAP 5-325MG 1 EACH TAB PO PRN ×2 (03:29→10:40)
--- NOTE | 2019-03-05 06:24 | P.PNOBGPC ---
Subjective - Subjective Patient reports: Reports appetite normal, Reports voiding normally, Reports pain well controlled, Reports ambulating normally : doing well Objective - Vital Signs Latest vital signs: Vital Signs Temp Pulse Resp BP Pulse Ox 03/05/19 00:00 98.5 F 69 16 108/73 97 03/04/19 16:00 98.5 F 81 18 124/66 99 03/04/19 08:00 97.8 F 81 18 126/72 99 Intake and Output 03/04/19 03/04/19 03/05/19 14:59 22:59 06:59 Other: # Voids 1 - Exam Lungs: bilateral: normal Chest: Normal S1, Normal S2 Extremities: Present: normal Abdomen: Present: normal appearance, soft. Absent: distention, tenderness Incision: Present: normal, dry, intact Uterus: Present: normal, firm Assessment and Plan Assessment: Postoperative day #3. Patient is resting without complaints wishes to go home. Vital signs are stable and she is afebrile. Uterus is firm nontender and her incision is intact and dry. My impression this is a normal course. Plan is to continue routine postoperative care discharge home later today (1) 39 weeks gestation of Current Visit: No Status: Acute Code(s): Z3A.39 - 39 WEEKS GESTATION OF SNOMED Code(s): 53503760 (2) Previous delivery affecting Current Visit: No Status: Acute Code(s): O34.219 - MATERNAL CARE FOR UNSP TYPE SCAR FROM PREVIOUS DEL SNOMED Code(s): 774607520 (3) Family planning Current Visit: No Status: Acute Code(s): Z30.09 - ENCOUNTER FOR OTH GENERAL CNSL AND ADVICE ON CONTRACEPTION SNOMED Code(s): 497582863 (4) Gestational diabetes Current Visit: No Status: Acute Code(s): O24.419 - GESTATIONAL DIABETES MELLITUS IN , UNSP CONTROL SNOMED Code(s): 59423686
--- NOTE | 2019-03-05 06:25 | P.DS ---
Providers Date of admission: 03/02/19 05:15 Expected date of discharge: 03/05/19 Attending physician: Jose Lizarraga Primary care physician: Stated None - Discharge Diagnosis(es) (1) 39 weeks gestation of Current Visit: No Status: Acute (2) Previous delivery affecting Current Visit: No Status: Acute (3) Family planning Current Visit: No Status: Acute (4) Gestational diabetes Current Visit: No Status: Acute Hospital Course: Please see dictated H&P for intimate details of this patient's admission. Brief summary this pleasant 33-year-old 4 para 2 female 39 and one sevenths weeks gestation admitted to labor and delivery for elective repeat section and tubal ligation. Patient is admitted undergoes above-named surgery for viable female . Please see dictated delivery note. day #3 patient's felt be stable for home follow up with me in 1 week Procedures: Repeat low transverse section and bilateral partial salpingectomy Patient Condition at Discharge: Good Plan - Discharge Summary Discharge Rx Participant: Yes New Discharge Prescriptions: New Ibuprofen [Motrin] 600 mg PO Q6HR PRN #40 tab PRN Reason: Mild Pain Or Fever >= 100.5 HYDROcodone/APAP 5-325MG [[place] 5-325] 1 each PO Q4HR PRN #18 tab PRN Reason: Moderate Pain No Action Pnv,Calcium 72/Iron/Folic Acid [ Plus Tablet] 1 tab PO DAILY Amoxicillin 500 mg PO TID Discharge Medication List Pnv,Calcium 72/Iron/Folic Acid [ Plus Tablet] 1 tab PO DAILY 01/28/17 [History] Amoxicillin 500 mg PO TID 03/02/19 [History] HYDROcodone/APAP 5-325MG [[place] 5-325] 1 each PO Q4HR PRN #18 tab 03/02/19 [Rx] Ibuprofen [Motrin] 600 mg PO Q6HR PRN #40 tab 03/02/19 [Rx] Follow up Appointment(s)/Referral(s): Jose Lizarraga MD [STAFF PHYSICIAN] - 03/12/19 10:00 am (Please see me in 6 weeks as well for a check.) Patient Instructions/Handouts: (DC) Activity/Diet/Wound Care/Special Instructions: No heavy lifting or strenuous activity for 6 weeks. No driving until she were able to be off of the pain medications. Please call if any fever, chills, excessive vaginal bleeding, and/or abdominal pain. Discharge Disposition: HOME SELF-CARE
[2019-03-05] MEDS: SENNOSIDES-DOCUSATE SODIUM 1 EACH TAB PO SCH (07:55)
[2019-03-05 08:22] VITALS: BP 119/63; PULSE 79; RESP 17; TEMP 97.9
== END 2019-03-05 10:50 | disposition home or self-care (01) | DRG 785 ==
LOC: 4FBP 05:15
PROVIDERS: ADMIT Obstetrics & Gynecology; ATTEND Obstetrics & Gynecology
PROC: 0UB70ZZ Excision of Bilateral Fallopian Tubes, Open Approach (ICD-10-PCS; principal; 2019-03-02 07:00)
PROC: 10D00Z1 Extraction of Products of Conception, Low, Open Approach (ICD-10-PCS; principal; 2019-03-02 07:00)
DX: O34.211 Maternal care for low transverse scar from previous cesarean delivery (principal); O24.420 Gestational diabetes mellitus in childbirth, diet controlled; Z30.2 Encounter for sterilization; Z37.0 Single live birth; Z3A.39 39 weeks gestation of pregnancy
CPT/HCPCS: 85025; 86850; 86900; 86901; 88302; 88307